=== PATIENT | female | born 1960 | race Caucasian/White ===

== ENCOUNTER 2020-10-30 01:42 | Observation (INO) | payer OTHER ==
[2020-10-30] MEDS ORDERED: Sodium Chloride 0.9% 2.5 ML Syringe FLUSH PRN (01:44)
[2020-10-30] MEDS ORDERED: Sodium Chloride 0.9% 10 ML Syringe FLUSH PRN (01:44)
--- NOTE | 2020-10-30 02:04 | EDM.PDOC ---
ED HPI GENERAL MEDICAL PROBLEM - General Chief Complaint: Chest Pain Stated Complaint: CHEST PAIN Time Seen by Provider: 10/30/20 01:43 Source of Information: Reports: Patient History Limitations: Reports: No Limitations - History of Present Illness INITIAL COMMENTS - FREE TEXT/NARRATIVE: 60-year-old female with history of HTN, DM, HLD presents with chest pain. About an hour and a half ago she was woken up from her sleep with sharp left-sided chest pain rated 10/10 at that time, currently subsided to 6/10. Pain radiates from her left upper back into her left chest, associated with numbness to the left arm, nausea, shortness of breath and sweats. She denies fever, chills, cough, palpitation, abdominal pain. She does not smoke cigarettes. She has never undergone a stress test. ROS: A 10-point review of systems, other than pertinent positives and negatives as stated per HPI, is otherwise negative Past medical history: No additional pertinent history Past Surgical history: No additional pertinent history Social history: No additional pertinent history Family history: No additional pertinent history PHYSICAL EXAM General: AOx4, GCS = 15, mild distress HEENT: dry mucous membrane Neck: supple, no meningismus, no Kernig or Brudzinski Cardiac: S1S2 RRR Respiratory: CTAB, no crackles or rales, no wheezing Abdomen: Soft, nontender, no rebound or guarding, nondistended, no pulsatile mass. Back: Left rhomboid muscle tender to palpation with swelling Musculoskeletal: NVI distally, no deformity Neuro: No focal deficits Left Upper Chest Pain Score (Numeric/FACES): 8 - Related Data Allergies Allergy/AdvReac Type Severity Reaction Status Date / Time No Known Allergies Allergy Verified 11/28/13 16:24 Home Meds: Home Meds Amoxicillin/Potassium Clav [Augmentin 875-125 Tablet] 1 each PO BID #20 tablet 11/28/13 [Rx] atorvaSTATin [Lipitor] 10 mg PO BEDTIME 11/28/13 [History] metFORMIN [Glucophage] 500 mg PO TIDM 11/28/13 [History] ED ROS GENERAL - Review of Systems Review Of Systems: See Below (see dictation) ED EXAM, GENERAL - Physical Exam Exam: See Below (see dictation) #1 Interpretation EKG Interpretation Comments: Heart rate = 70 bpm, normal sinus rhythm, normal QRS interval, no STEMI. EKG and rhythm strip interpreted by me at 0141 #2 Interpretation EKG Interpretation Comments: Heart rate = 78 bpm, normal sinus rhythm, normal QRS interval, no STEMI. EKG and rhythm strip interpreted by me at 0300 Course - Vital Signs Last Recorded V/S: Last Vital Signs Temp 96.9 F 10/30/20 01:56 Pulse 88 10/30/20 02:41 Resp 16 10/30/20 02:41 BP 135/67 10/30/20 02:41 Pulse Ox 96 10/30/20 02:41 - Orders/Labs/Meds Orders: Active Orders 24 hr Category Date Time Status Patient Status [ADT] Routine ADT 10/30/20 02:55 Active Cardiac Monitoring [RC] . DIRECTED Care 10/30/20 01:44 Active EKG 12 Lead [EKG Documentation Completion] [RC] STAT Care 10/30/20 02:59 Active Pulse Oximetry [RC] ASDIRECTED Care 10/30/20 01:44 Active Chest 1V Frontal [CR] Stat Exams 10/30/20 01:44 Taken CORONAVIRUS COVID-19 ELVIS [MOLEC] Stat Lab 10/30/20 02:15 Received Nitroglycerin [Nitrostat] Med 10/30/20 02:10 Active 0.4 mg SL Q5M PRN Sodium Chloride 0.9% [Saline Flush] Med 10/30/20 01:44 Active 10 ml FLUSH ASDIRECTED PRN Sodium Chloride 0.9% [Saline Flush] Med 10/30/20 01:44 Active 2.5 ml FLUSH ASDIRECTED PRN Saline Lock Insert [OM.PC] Stat Oth 10/30/20 01:44 Ordered Medication Orders Nitroglycerin (Nitroglycerin 0.4 Mg Tab.Sl) 0.4 mg SL Q5M PRN PRN Reason: Chest Pain Stop: 10/31/20 02:11 Last Admin: 10/30/20 02:34 Dose: 0.4 mg Documented by: Admin: 10/30/20 02:28 Dose: 0.4 mg Documented by: Admin: 10/30/20 02:19 Dose: 0.4 mg Documented by: CASIMIRO Sodium Chloride (Sodium Chloride 0.9% 10 Ml Syringe) 10 ml FLUSH ASDIRECTED PRN PRN Reason: Keep Vein Open Sodium Chloride (Sodium Chloride 0.9% 2.5 Ml Syringe) 2.5 ml FLUSH ASDIRECTED PRN PRN Reason: Keep Vein Open Labs: Laboratory Tests 10/30/20 10/30/20 10/30/20 Range/Units 01:50 01:50 01:50 WBC 12.39 H (4.0-11.0) K/uL RBC 5.31 (4.30-5.90) M/uL Hgb 15.4 (12.0-16.0) g/dL Hct 45.2 (36.0-46.0) % MCV 85.1 (80.0-98.0) fL MCH 29.0 (27.0-32.0) pg MCHC 34.1 (31.0-37.0) g/dL RDW Std Deviation 44.7 (28.0-62.0) fl RDW Coeff of Carmen 14 (11.0-15.0) % Plt Count 289 (150-400) K/uL MPV 11.30 (7.40-12.00) fL Neut % (Auto) 44.3 L (48.0-80.0) % Lymph % (Auto) 43.3 H (16.0-40.0) % [place] % (Auto) 6.6 (0.0-15.0) % Eos % (Auto) 5.2 (0.0-7.0) % Baso % (Auto) 0.6 (0.0-1.5) % Neut # (Auto) 5.5 (1.4-5.7) K/uL Lymph # (Auto) 5.4 H (0.6-2.4) K/uL [place] # (Auto) 0.8 (0.0-0.8) K/uL Eos # (Auto) 0.7 (0.0-0.7) K/uL Baso # (Auto) 0.1 (0.0-0.1) K/uL Nucleated RBC % 0.0 /100WBC Nucleated RBCs # 0 K/uL INR 0.96 D-Dimer, Quantitative (0.0-0.50) mg/L FEU Sodium 140 (136-145) mmol/L Potassium 4.0 (3.5-5.1) mmol/L Chloride 102 (98-107) mmol/L Carbon Dioxide 26.2 (21.0-32.0) mmol/L BUN 25 H (7.0-18.0) mg/dL Creatinine 1.1 H (0.6-1.0) mg/dL Est Cr Clr Drug Dosing TNP Estimated GFR (MDRD) 50.5 ml/min Glucose 173 H (74-106) mg/dL POC Glucose (70-99) mg/dL Calcium 8.9 (8.5-10.1) mg/dL Total Bilirubin 0.3 (0.2-1.0) mg/dL AST 45 H (15-37) IU/L ALT 58 (14-63) IU/L Alkaline Phosphatase 110 (46-116) U/L Troponin I < 0.050 (0.000-0.056) ng/mL B-Natriuretic Peptide (<100) PG/ML Total Protein 7.7 (6.4-8.2) g/dL Albumin 3.9 (3.4-5.0) g/dL Globulin 3.8 (2.6-4.0) g/dL Albumin/Globulin Ratio 1.0 (0.9-1.6) 10/30/20 10/30/20 10/30/20 Range/Units 01:50 01:50 01:52 WBC (4.0-11.0) K/uL RBC (4.30-5.90) M/uL Hgb (12.0-16.0) g/dL Hct (36.0-46.0) % MCV (80.0-98.0) fL MCH (27.0-32.0) pg MCHC (31.0-37.0) g/dL RDW Std Deviation (28.0-62.0) fl RDW Coeff of Carmen (11.0-15.0) % Plt Count (150-400) K/uL MPV (7.40-12.00) fL Neut % (Auto) (48.0-80.0) % Lymph % (Auto) (16.0-40.0) % [place] % (Auto) (0.0-15.0) % Eos % (Auto) (0.0-7.0) % Baso % (Auto) (0.0-1.5) % Neut # (Auto) (1.4-5.7) K/uL Lymph # (Auto) (0.6-2.4) K/uL [place] # (Auto) (0.0-0.8) K/uL Eos # (Auto) (0.0-0.7) K/uL Baso # (Auto) (0.0-0.1) K/uL Nucleated RBC % /100WBC Nucleated RBCs # K/uL INR D-Dimer, Quantitative 0.32 (0.0-0.50) mg/L FEU Sodium (136-145) mmol/L Potassium (3.5-5.1) mmol/L Chloride (98-107) mmol/L Carbon Dioxide (21.0-32.0) mmol/L BUN (7.0-18.0) mg/dL Creatinine (0.6-1.0) mg/dL Est Cr Clr Drug Dosing Estimated GFR (MDRD) ml/min Glucose (74-106) mg/dL POC Glucose 171 H (70-99) mg/dL Calcium (8.5-10.1) mg/dL Total Bilirubin (0.2-1.0) mg/dL AST (15-37) IU/L ALT (14-63) IU/L Alkaline Phosphatase (46-116) U/L Troponin I (0.000-0.056) ng/mL B-Natriuretic Peptide 6 (<100) PG/ML Total Protein (6.4-8.2) g/dL Albumin (3.4-5.0) g/dL Globulin (2.6-4.0) g/dL Albumin/Globulin Ratio (0.9-1.6) Meds: Medications Generic Name Dose Route Start Last Admin Trade Name Freq PRN Reason Stop Dose Admin Nitroglycerin 0.4 mg 10/30/20 02:10 10/30/20 02:34 Nitroglycerin 0.4 Mg Tab.Sl SL 10/31/20 02:11 0.4 mg Q5M PRN Administration Chest Pain Sodium Chloride 10 ml 10/30/20 01:44 Sodium Chloride 0.9% 10 Ml Syringe FLUSH ASDIRECTED PRN Keep Vein Open Sodium Chloride 2.5 ml 10/30/20 01:44 Sodium Chloride 0.9% 2.5 Ml Syringe FLUSH ASDIRECTED PRN Keep Vein Open Discontinued Medications Generic Name Dose Route Start Last Admin Trade Name Yury PRN Reason Stop Dose Admin Aspirin 324 mg 10/30/20 02:10 10/30/20 02:18 Aspirin 81 Mg Tab.Chew PO 10/30/20 02:11 324 mg ONETIME ONE Administration Morphine Sulfate 4 mg 10/30/20 02:44 10/30/20 03:00 Morphine 4 Mg/Ml Syringe IVPUSH 10/30/20 02:45 4 mg ONETIME ONE Administration Ondansetron HCl 4 mg 10/30/20 02:44 10/30/20 02:57 Ondansetron 4 Mg/2 Ml Sdv IVPUSH 10/30/20 02:45 4 mg ONETIME ONE Administration - Re-Assessments/Exams Free Text/Narrative Re-Assessment/Exam: 10/30/20 03:00 Patient has a heart score = 4, requires admission for further assessment. Patient's chest pain is down to 2/10 after nitroglycerin and morphine. Case discussed with Dr. El Saldivar, who agrees to admit patient. The hospitalist's documentation supersedes all other documentation on this patient with regard to any conflicts or discrepancies from this point forward. Any emergency conditions have been treated to the ability of the ED prior to admission. Departure - Departure Time of Disposition: 03:06 Disposition: Refer to Observation Condition: Good Clinical Impression: Atypical chest pain Instructions: Nonspecific Chest Pain, Adult Referrals: Mayo Huertas MD [Primary Care Provider] - Forms: ED Department Discharge Sepsis Event Note (ED) - Focused Exam Vital Signs: Vital Signs Temp Pulse Resp BP BP Pulse Ox 10/30/20 02:41 88 16 135/67 96 10/30/20 02:34 140/54 L 10/30/20 02:31 80 16 148/65 H 95 10/30/20 02:28 148/65 H 10/30/20 02:19 143/55 H 10/30/20 01:56 96.9 F 78 19 148/75 H 95 - My Orders Last 24 Hours: My Active Orders 10/30/20 01:44 Cardiac Monitoring [RC] . DIRECTED Pulse Oximetry [RC] ASDIRECTED Chest 1V Frontal [CR] Stat Sodium Chloride 0.9% [Saline Flush] 10 ml FLUSH ASDIRECTED PRN Sodium Chloride 0.9% [Saline Flush] 2.5 ml FLUSH ASDIRECTED PRN Saline Lock Insert [OM.PC] Stat 10/30/20 02:10 Nitroglycerin [Nitrostat] 0.4 mg SL Q5M PRN 10/30/20 02:15 CORONAVIRUS COVID-19 ELVIS [MOLEC] Stat 10/30/20 02:55 Patient Status [ADT] Routine 10/30/20 02:59 EKG 12 Lead [EKG Documentation Completion] [RC] STAT - Assessment/Plan Last 24 Hours: My Active Orders 10/30/20 01:44 Cardiac Monitoring [RC] . DIRECTED Pulse Oximetry [RC] ASDIRECTED Chest 1V Frontal [CR] Stat Sodium Chloride 0.9% [Saline Flush] 10 ml FLUSH ASDIRECTED PRN Sodium Chloride 0.9% [Saline Flush] 2.5 ml FLUSH ASDIRECTED PRN Saline Lock Insert [OM.PC] Stat 10/30/20 02:10 Nitroglycerin [Nitrostat] 0.4 mg SL Q5M PRN 10/30/20 02:15 CORONAVIRUS COVID-19 ELVIS [MOLEC] Stat 10/30/20 02:55 Patient Status [ADT] Routine 10/30/20 02:59 EKG 12 Lead [EKG Documentation Completion] [RC] STAT
[2020-10-30] MEDS ORDERED: Aspirin 81 MG Tab.Chew PO ONE (02:10)
[2020-10-30] MEDS: Nitroglycerin 0.4 MG Tab.SL SL PRN ×4 (02:19→08:52)
[2020-10-30 02:32] LABS: BLOOD UREA NITROGEN,BUN 25 mg/dL (7.0-18.0); CARBON DIOXIDE,CO2 26.2 mmol/L (21.0-32.0); CHLORIDE,CL 102 mmol/L (98-107); GLUCOSE RANDOM 173 mg/dL (74-106); SODIUM,NA 140 mmol/L (136-145)
[2020-10-30] MEDS ORDERED: Ondansetron 4 MG/2 ML SDV IVPUSH ONE (02:44)
[2020-10-30] MEDS ORDERED: Morphine 4 MG/ML Syringe IVPUSH ONE (02:44)
--- NOTE | 2020-10-30 03:16 | CR ---
INDICATION: Chest pain. TECHNIQUE: Portable AP view of the chest. COMPARISON: None. FINDINGS: Limited by body habitus. Normal heart size. Pulmonary vasculature is unremarkable. Elevated right hemidiaphragm. Ill-defined opacity left lung apex is presumably related to superimposition of overlying structures. Recommend follow-up radiographs for confirmation. Lungs are otherwise grossly clear. No pleural fluid or pneumothorax. IMPRESSION: 1. No radiographic signs of acute cardiopulmonary disease. 2. Left apical opacity. See above Dictated by Leroy Oconnor MD @ 10/30/2020 3:14:08 AM Dictated by: Leroy Oconnor MD @ 10/30/2020 03:14:22 (Electronically Signed)
[2020-10-30] MEDS ORDERED: Glucagon,Human Recombinant 1 MG Vial IM PRN (06:21)
[2020-10-30] MEDS ORDERED: 50% Dextrose in Water 50 ML Syringe IVPUSH PRN (06:21)
--- NOTE | 2020-10-30 09:50 | PCM.HP.2 ---
H&P History of Present Illness - General Date of Service: 10/30/20 Admit Problem/Dx: Admission Diagnosis/Problem Admission Diagnosis/Problem Chest pain Source of Information: Patient History Limitations: Reports: No Limitations - History of Present Illness Initial Comments - Free Text/Narative: This 60-year-old female with past medical history of HLD, HTN, DM type II and ob esity presented to the ER with complaints of left-sided chest pain that woke her up from sleep in the middle of the night. She reports that she woke up from a dream feeling that she was uncomfortable and had left upper back and left chest pain that radiated down her left arm causing some numbness and tingling. She felt nauseated as well denied any shortness of breath or diaphoresis. She reports that he thinks she tried positioning or moving did not help. She did not try any medications. She felt that this was nothing like she has had before and felt she needed to be evaluated. She woke her up and came to the ER. She denies recently feeling ill. No chest trauma or injury recently. 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 She denies any recent fevers chills or shortness of breath. No upper respiratory symptoms such as sinus congestion or sore throat. She denies any abdominal pain black or bloody bowel movements and no dysuria or urinary symptoms. She reports the chest pain did return this morning but less intense nitro again helped. She de nies the back pain as much but reports the front midsternal chest pain that is producible to palpation to chest and back. She denies current tobacco use she quit approximately 21 years ago. No recreational drug use and no alcohol use. She reports that her father has had multiple MIs the first being in his 50s needing stent placement. Reports that her only sibling sister is otherwise healthy and no heart disease. She denies ever having a stress test in the past. In the ER mild leukocytosis 12,000 noted BUN 25 creatinine 1.1. Glucose 173 troponin in the ER negative Covid swab negative. Chest x-ray in the ER negative. EKG sinus rhythm with no acute ST or T wave changes no ischemic murrell ges noted. In the ER she was treated with nitro and morphine with subsequent relief of pain. Vital signs in the ER stable blood pressure initially 148/75 heart rate in the 70s 95% on room air with respirations of 19. Patient will be admitted for chest pain rule out ACS. Left Upper Chest Pain Score (Numeric/FACES): 8 - Related Data Allergies/Adverse Reactions: Allergies Allergy/AdvReac Type Severity Reaction Status Date / Time No Known Allergies Allergy Verified 10/30/20 05:00 Home Medications: Home Meds Aspirin 81 mg PO DAILY #30 tab.chew 10/30/20 [Rx] Empagliflozin/Metformin HCl [Synjardy 12.5-1,000 mg Tablet] 1 each PO BIDMEALS 10/30/20 [History] FLUoxetine HCl [Fluoxetine HCl] 40 mg PO BEDTIME 10/30/20 [History] Losartan Potassium 50 mg PO BEDTIME 10/30/20 [History] atorvaSTATin [Lipitor] 20 mg PO BEDTIME 10/30/20 [History] Past Medical History HEENT History: Reports: Impaired Vision Cardiovascular History: Reports: High Cholesterol, Hypertension. Denies: Afib, Blood Clots/VTE/DVT, CO, SOB on Exertion, Stents Other Cardiovascular History: Patient states she takes blood pressure medication for her kidneys Respiratory History: Reports: Pneumonia, Recurrent Genitourinary History: Reports: Other (See Below) Other Genitourinary History: Urinary frequency INDI[place] NANNY History: Reports: Musculoskeletal History: Reports: Fracture Other Musculoskeletal History: Left Foot 2nd toe Neurological History: Reports: Other (See Below). Denies: CVA, TIA Other Neuro History: Febrile seizures as child Psychiatric History: Reports: Depression Endocrine/Metabolic History: Reports: Diabetes, Type II, Obesity/BMI 30+ Hematologic History: Reports: B12 Deficiency - Infectious Disease History Infectious Disease History: Reports: Chicken Pox - Past Surgical History HEENT Surgical History: Reports: Tonsillectomy GI Surgical History: Reports: Appendectomy, Cholecystectomy Female Surgical History: Reports: Hysterectomy, Tubal Ligation Social & Family History - Tobacco Use Tobacco Use Status *Q: Former Tobacco User Used Tobacco, but Quit: Yes Month/Year Tobacco Last Used: 1999 Second Hand Smoke Exposure: No - Caffeine Use Caffeine Use: Reports: Coffee, Soda, Tea - Alcohol Use Alcohol Use History: No Alcohol Use Frequency: Rarely, Socially - Recreational Drug Use Recreational Drug Use: No - Living Situation & Occupation Living situation: Reports: Occupation: Employed H&P Review of Systems - Review of Systems: Review Of Systems: See Below General: Reports: No Symptoms. Denies: Fever, Chills, Malaise, Weakness HEENT: Reports: No Symptoms. Denies: Headaches, Sinus Congestion, Sore Throat, Vertigo Pulmonary: Denies: Shortness of Breath, Pleuritic Chest Pain, Cough Cardiovascular: Reports: Chest Pain (Has since improved.). Denies: Palpitations, Dyspnea on Exertion, Lightheadedness, Syncope, Blood Pressure Problem Gastrointestinal: Reports: Nausea. Denies: Abdominal Pain, Black Stool, Bloody Stool, Vomiting Genitourinary: Reports: No Symptoms. Denies: Dysuria, Frequency, Burning Musculoskeletal: Reports: No Symptoms Skin: Reports: No Symptoms Psychiatric: Reports: No Symptoms Neurological: Reports: No Symptoms Hematologic/Lymphatic: Reports: No Symptoms Immunologic: Reports: No Symptoms Exam - Exam Exam: See Below - Vital Signs Vital Signs: Last Vital Signs Temp 96.3 F L 10/30/20 08:00 Pulse 69 10/30/20 08:00 Resp 18 10/30/20 08:00 BP 124/68 10/30/20 08:52 Pulse Ox 93 L 10/30/20 08:00 Weight: 115.394 kg - Exam General: Alert, Oriented, Cooperative HEENT: Conjunctiva Clear, Mucosa Moist & [place], Posterior Pharynx Clear Lungs: Clear to Auscultation, Normal Respiratory Effort Cardiovascular: Regular Rate, Regular Rhythm, Other (Is reproducible chest pain and upper left back pain reproduces pain she is feeling.) GI/Abdominal Exam: Normal Bowel Sounds, Soft, Non-Tender Extremities: Normal Inspection, Normal Range of Motion, Non-Tender, No Pedal Edema Neuro Extensive - Mental Status: Alert, Oriented x3 Neuro Extensive - Motor, Sensory, Reflexes: CN II-XII Intact - Patient Data Lab Results Last 24 hrs: Laboratory Results - last 24 hr 10/30/20 10/30/20 10/30/20 Range/Units 01:50 01:50 01:50 WBC 12.39 H (4.0-11.0) K/uL RBC 5.31 (4.30-5.90) M/uL Hgb 15.4 (12.0-16.0) g/dL Hct 45.2 (36.0-46.0) % MCV 85.1 (80.0-98.0) fL MCH 29.0 (27.0-32.0) pg MCHC 34.1 (31.0-37.0) g/dL RDW Std Deviation 44.7 (28.0-62.0) fl RDW Coeff of Carmen 14 (11.0-15.0) % Plt Count 289 (150-400) K/uL MPV 11.30 (7.40-12.00) fL Neut % (Auto) 44.3 L (48.0-80.0) % Lymph % (Auto) 43.3 H (16.0-40.0) % Bertie % (Auto) 6.6 (0.0-15.0) % Eos % (Auto) 5.2 (0.0-7.0) % Baso % (Auto) 0.6 (0.0-1.5) % Neut # (Auto) 5.5 (1.4-5.7) K/uL Lymph # (Auto) 5.4 H (0.6-2.4) K/uL Bertie # (Auto) 0.8 (0.0-0.8) K/uL Eos # (Auto) 0.7 (0.0-0.7) K/uL Baso # (Auto) 0.1 (0.0-0.1) K/uL Nucleated RBC % 0.0 /100WBC Nucleated RBCs # 0 K/uL INR 0.96 D-Dimer, Quantitative (0.0-0.50) mg/L FEU Sodium 140 (136-145) mmol/L Potassium 4.0 (3.5-5.1) mmol/L Chloride 102 (98-107) mmol/L Carbon Dioxide 26.2 (21.0-32.0) mmol/L BUN 25 H (7.0-18.0) mg/dL Creatinine 1.1 H (0.6-1.0) mg/dL Est Cr Clr Drug Dosing TNP Estimated GFR (MDRD) 50.5 ml/min Glucose 173 H (74-106) mg/dL POC Glucose (70-99) mg/dL Calcium 8.9 (8.5-10.1) mg/dL Total Bilirubin 0.3 (0.2-1.0) mg/dL AST 45 H (15-37) IU/L ALT 58 (14-63) IU/L Alkaline Phosphatase 110 (46-116) U/L Troponin I < 0.050 (0.000-0.056) ng/mL B-Natriuretic Peptide (<100) PG/ML Total Protein 7.7 (6.4-8.2) g/dL Albumin 3.9 (3.4-5.0) g/dL Globulin 3.8 (2.6-4.0) g/dL Albumin/Globulin Ratio 1.0 (0.9-1.6) SARS-CoV-2 RNA (ELVIS) (NEGATIVE) 10/30/20 10/30/20 10/30/20 Range/Units 01:50 01:50 01:52 WBC (4.0-11.0) K/uL RBC (4.30-5.90) M/uL Hgb (12.0-16.0) g/dL Hct (36.0-46.0) % MCV (80.0-98.0) fL MCH (27.0-32.0) pg MCHC (31.0-37.0) g/dL RDW Std Deviation (28.0-62.0) fl RDW Coeff of Carmen (11.0-15.0) % Plt Count (150-400) K/uL MPV (7.40-12.00) fL Neut % (Auto) (48.0-80.0) % Lymph % (Auto) (16.0-40.0) % Bertie % (Auto) (0.0-15.0) % Eos % (Auto) (0.0-7.0) % Baso % (Auto) (0.0-1.5) % Neut # (Auto) (1.4-5.7) K/uL Lymph # (Auto) (0.6-2.4) K/uL Bertie # (Auto) (0.0-0.8) K/uL Eos # (Auto) (0.0-0.7) K/uL Baso # (Auto) (0.0-0.1) K/uL Nucleated RBC % /100WBC Nucleated RBCs # K/uL INR D-Dimer, Quantitative 0.32 (0.0-0.50) mg/L FEU Sodium (136-145) mmol/L Potassium (3.5-5.1) mmol/L Chloride (98-107) mmol/L Carbon Dioxide (21.0-32.0) mmol/L BUN (7.0-18.0) mg/dL Creatinine (0.6-1.0) mg/dL Est Cr Clr Drug Dosing Estimated GFR (MDRD) ml/min Glucose (74-106) mg/dL POC Glucose 171 H (70-99) mg/dL Calcium (8.5-10.1) mg/dL Total Bilirubin (0.2-1.0) mg/dL AST (15-37) IU/L ALT (14-63) IU/L Alkaline Phosphatase (46-116) U/L Troponin I (0.000-0.056) ng/mL B-Natriuretic Peptide 6 (<100) PG/ML Total Protein (6.4-8.2) g/dL Albumin (3.4-5.0) g/dL Globulin (2.6-4.0) g/dL Albumin/Globulin Ratio (0.9-1.6) SARS-CoV-2 RNA (ELVIS) (NEGATIVE) 10/30/20 10/30/20 10/30/20 Range/Units 02:15 06:46 09:01 WBC (4.0-11.0) K/uL RBC (4.30-5.90) M/uL Hgb (12.0-16.0) g/dL Hct (36.0-46.0) % MCV (80.0-98.0) fL MCH (27.0-32.0) pg MCHC (31.0-37.0) g/dL RDW Std Deviation (28.0-62.0) fl RDW Coeff of Carmen (11.0-15.0) % Plt Count (150-400) K/uL MPV (7.40-12.00) fL Neut % (Auto) (48.0-80.0) % Lymph % (Auto) (16.0-40.0) % Bertie % (Auto) (0.0-15.0) % Eos % (Auto) (0.0-7.0) % Baso % (Auto) (0.0-1.5) % Neut # (Auto) (1.4-5.7) K/uL Lymph # (Auto) (0.6-2.4) K/uL Bertie # (Auto) (0.0-0.8) K/uL Eos # (Auto) (0.0-0.7) K/uL Baso # (Auto) (0.0-0.1) K/uL Nucleated RBC % /100WBC Nucleated RBCs # K/uL INR D-Dimer, Quantitative (0.0-0.50) mg/L FEU Sodium (136-145) mmol/L Potassium (3.5-5.1) mmol/L Chloride (98-107) mmol/L Carbon Dioxide (21.0-32.0) mmol/L BUN (7.0-18.0) mg/dL Creatinine (0.6-1.0) mg/dL Est Cr Clr Drug Dosing Estimated GFR (MDRD) ml/min Glucose (74-106) mg/dL POC Glucose 164 H (70-99) mg/dL Calcium (8.5-10.1) mg/dL Total Bilirubin (0.2-1.0) mg/dL AST (15-37) IU/L ALT (14-63) IU/L Alkaline Phosphatase (46-116) U/L Troponin I < 0.050 (0.000-0.056) ng/mL B-Natriuretic Peptide (<100) PG/ML Total Protein (6.4-8.2) g/dL Albumin (3.4-5.0) g/dL Globulin (2.6-4.0) g/dL Albumin/Globulin Ratio (0.9-1.6) SARS-CoV-2 RNA (ELVIS) NEGATIVE (NEGATIVE) Result Diagrams: 10/30/20 01:50 10/30/20 01:50 Sepsis Event Note - Evaluation Sepsis Screening Result: No Definite Risk - Focused Exam Vital Signs: Vital Signs Temp Pulse Resp BP BP Pulse Ox 10/30/20 08:52 124/68 10/30/20 08:00 96.3 F L 69 18 121/60 93 L 10/30/20 04:58 96.9 F 70 18 131/61 95 10/30/20 04:19 72 16 134/56 L 94 L 10/30/20 03:12 75 16 123/63 94 L 10/30/20 02:41 88 16 135/67 96 10/30/20 02:34 140/54 L 10/30/20 02:31 80 16 148/65 H 95 10/30/20 02:28 148/65 H 10/30/20 02:19 143/55 H 10/30/20 01:56 96.9 F 78 19 148/75 H 95 - Problem List (1) Atypical chest pain SNOMED Code(s): 754014525 ICD Code: R07.89 - OTHER CHEST PAIN Status: Acute Current Visit: Yes (2) HTN (hypertension) SNOMED Code(s): 24584093 ICD Code: I10 - ESSENTIAL (PRIMARY) HYPERTENSION Status: Chronic Current Visit: Yes (3) HLD (hyperlipidemia) SNOMED Code(s): 46733278 ICD Code: E78.5 - HYPERLIPIDEMIA, UNSPECIFIED Status: Chronic Current Visit: Yes (4) Diabetes type 2, controlled SNOMED Code(s): 36463951, 882722583 ICD Code: E11.9 - TYPE 2 DIABETES MELLITUS WITHOUT COMPLICATIONS Status: Chronic Current Visit: Yes Qualifiers: Diabetes mellitus terminal operator insulin use: without terminal operator use Diabetes mellitus complication status: without complication Qualified Code(s): E11.9 - Type 2 diabetes mellitus without complications (5) Obesity SNOMED Code(s): 211854740, 906954173 ICD Code: E66.9 - OBESITY, UNSPECIFIED Status: Chronic Current Visit: Yes Problem List Initiated/Reviewed/Updated: Yes Orders Last 24hrs: Active Orders 24 hr Category Date Time Status Patient Status [ADT] Routine ADT 10/30/20 02:55 Active Accu Check [Blood Glucose Check, Bedside] [RC] TIDAC Care 10/30/20 07:30 Active Cardiac Monitoring [RC] . DIRECTED Care 10/30/20 01:44 Active EKG 12 Lead [EKG Documentation Completion] [RC] STAT Care 10/30/20 09:02 Active Pulse Oximetry [RC] ASDIRECTED Care 10/30/20 01:44 Active Telemetry Monitoring [Cardiac Monitoring] [RC] Q8H Care 10/30/20 03:10 Active ADA Diabetic [[place] [employer] Diet] [DIET Diet 10/30/20 Breakfast Active ] TROPONIN I [CHEM] Q6H Lab 10/30/20 12:20 Ordered Alum Hydrox/Mag Hydrox/Simeth [Mag-Al Plus] 15 ml Med 10/30/20 09:42 Ordered Lidocaine 2% [Xylocaine 2% Viscous] 5 ml PO ONETIME Dextrose 50% in Water Med 10/30/20 06:21 Active 50 ml IVPUSH ASDIRECTED PRN FLUoxetine [PROzac] Med 10/30/20 21:00 Active 40 mg PO BEDTIME Glucagon,Human Recombinant [GlucaGen] Med 10/30/20 06:21 Active 1 mg IM ASDIRECTED PRN Insulin Aspart [NovoLOG] Med 10/30/20 07:30 Active See Protocol SUBCUT TIDAC Losartan [Cozaar] Med 10/30/20 21:00 Active 50 mg PO BEDTIME Nitroglycerin [Nitrostat] Med 10/30/20 02:10 Active 0.4 mg SL Q5M PRN Pantoprazole [ProTONIX IV] 40 mg Med 10/30/20 09:42 Ordered Sodium Chloride 0.9% [Normal Saline] 10 ml IV NOW Sodium Chloride 0.9% [Saline Flush] Med 10/30/20 01:44 Active 10 ml FLUSH ASDIRECTED PRN Sodium Chloride 0.9% [Saline Flush] Med 10/30/20 01:44 Active 2.5 ml FLUSH ASDIRECTED PRN atorvaSTATin [Lipitor] Med 10/30/20 21:00 Active 20 mg PO BEDTIME Saline Lock Insert [OM.PC] Stat Oth 10/30/20 01:44 Ordered Medication Orders Atorvastatin Calcium (Atorvastatin 20 Mg Tab) 20 mg PO BEDTIME ANGELES Al Hydroxide/Mg Hydroxide 15 (ml/ Lidocaine HCl 5 ml) 0 ml PO ONETIME ONE Stop: 10/30/20 09:43 Dextrose/Water (50% Dextrose In Water 50 Ml Syringe) 50 ml IVPUSH ASDIRECTED PRN PRN Reason: Hypoglycemia Fluoxetine HCl (Fluoxetine 20 Mg Cap) 40 mg PO BEDTIME ANGELES Glucagon (Glucagon,Human Recombinant 1 Mg Vial) 1 mg IM ASDIRECTED PRN PRN Reason: Hypoglycemia Pantoprazole Sodium 40 mg/ (Sodium Chloride) 10 mls @ 300 mls/hr IV NOW ONE Stop: 10/30/20 09:43 Insulin Aspart (Insulin Aspart 100 Units/Ml 3 Ml Pen) 0 unit SUBCUT TIDAC ANGELES; Protocol Losartan Potassium (Losartan 50 Mg Tab) 50 mg PO BEDTIME ANGELES Nitroglycerin (Nitroglycerin 0.4 Mg Tab.Sl) 0.4 mg SL Q5M PRN PRN Reason: Chest Pain Stop: 10/31/20 02:11 Last Admin: 10/30/20 08:52 Dose: 0.4 mg Documented by: Admin: 10/30/20 02:34 Dose: 0.4 mg Documented by: Admin: 10/30/20 02:28 Dose: 0.4 mg Documented by: Admin: 10/30/20 02:19 Dose: 0.4 mg Documented by: CASIMIRO Sodium Chloride (Sodium Chloride 0.9% 10 Ml Syringe) 10 ml FLUSH ASDIRECTED PRN PRN Reason: Keep Vein Open Sodium Chloride (Sodium Chloride 0.9% 2.5 Ml Syringe) 2.5 ml FLUSH ASDIRECTED PRN PRN Reason: Keep Vein Open Assessment/Plan Comment:: 60-year-old female admitted with chest pain rule out ACS. 1. Atypical chest pain rule out ACS -Monitor on telemetry -Troponins x2 - next at 1230 -We will set up outpatient stress test -Obtain TSH A1c and lipid panel -Patient eager for discharge later this afternoon if possible -Discussed lifestyle changes of weight loss and dietary changes. at bedside both agreed. And verbalized understanding 2. HTN/HLD/DM type II -Continue home medications of statin and losartan -NovoLog sliding scale on hospital hold p.o. diabetic medications VTE prophylaxis: SCDs CODE STATUS: Full code Dispo: Possible later today Discharge plan Patient third troponin came back negative. She has been eating and drinking well. No return of chest pain today. Denies any concerns now and is very eager for discharge home. Patient hemoglobin A1c 8 patient reports this is slightly higher than it has been in the past encouraged to monitor blood sugars as well as improving diet by restricting carbs as well as sugars. She was also counseled on heart healthy diet as well. To be set up for outpatient stress test with results going to her PCP Dr. Huertas. She is counseled on taking 81 mg of baby aspirin daily. She is to be light duty at work until stress test or PCP has cleared her. Patient to resume all other home medications. Triglycerides elevated at 219. LDL 51 total cholesterol 128 HDL 33. Continue atorvastatin 20 home dose. TSH 1.9. Patient discharged home today at bedside all questions and concerns addressed.
[2020-10-30] MEDS ORDERED: Pantoprazole 40 MG in Sodium Chloride 0.9% 10 ML IV ONE (10:15)
[2020-10-30] MEDS ORDERED: Alum Hydrox/Mag Hydrox/Simeth 15 ML, Lidocaine 2% 5 ML PO ONE ×2 (10:15)
[2020-10-30] MEDS: Insulin Aspart 100 Units/ML 3 ML Pen SUBCUT SCH ×2 (11:01→15:19)
[2020-10-30] MEDS ORDERED: FLUoxetine 20 MG Cap PO SCH (21:00)
[2020-10-30] MEDS ORDERED: atorvaSTATin 20 MG Tab PO SCH (21:00)
[2020-10-30] MEDS ORDERED: Losartan 50 MG Tab PO SCH (21:00)
== END 2020-10-30 15:05 | disposition home or self-care (01) ==
LOC: MW.ED 01:42 → MW.MS 02:55
PROVIDERS: ADMIT Internal Medicine; ATTEND Internal Medicine
DX: R07.89 Other chest pain (principal); I10 Essential (primary) hypertension; E11.9 Type 2 diabetes mellitus without complications; E78.00 Pure hypercholesterolemia, unspecified; E53.8 Deficiency of other specified B group vitamins; E66.9 Obesity, unspecified; Z79.82 Long term (current) use of aspirin; Z79.899 Other long term (current) drug therapy; Z90.49 Acquired absence of other specified parts of digestive tract; Z98.890 Other specified postprocedural states; Z87.891 Personal history of nicotine dependence; Z20.822 Contact with and (suspected) exposure to COVID-19
CPT/HCPCS: 36415; 71045; 80053; 80061; 82947; 83036; 83880; 84443; 84484; 85025; 85379; 85610; 87635; 93005; 96375; A9270; C9113; G0378; J1815; J2270; J2405; 96374; 99285-25; U0002

== ENCOUNTER 2021-05-20 13:45 | Emergency (ER) | payer OTHER | END 2021-05-20 16:41 | disposition home or self-care (01) | LOC: MW.ED 13:45 | DX: S16.1XXA Strain of muscle, fascia and tendon at neck level, initial encounter (principal); S20.212A Contusion of left front wall of thorax, initial encounter; S40.012A Contusion of left shoulder, initial encounter; S30.0XXA Contusion of lower back and pelvis, initial encounter; E78.00 Pure hypercholesterolemia, unspecified; I10 Essential (primary) hypertension; E11.9 Type 2 diabetes mellitus without complications; E66.9 Obesity, unspecified; Z68.30 Body mass index [BMI] 30.0-30.9, adult; Z79.899 Other long term (current) drug therapy; V89.2XXA Person injured in unspecified motor-vehicle accident, traffic, initial encounter; Y92.410 Unspecified street and highway as the place of occurrence of the external cause | CPT/HCPCS: 70450; 70450-26; 71046; 71046-26; 72100; 72100-26; 72125; 72125-26; 73000-26-LT; 73000-LT; 99283; 99284-25 ==